=== PATIENT | male | born 1980 | race Two or more races ===

== ENCOUNTER 2025-05-24 16:49 | Emergency (ER) | payer MEDICARE ==
[~2025-05-24] VITALS: Ht 170.2 cm; Wt 85.1 kg
--- NOTE | 2025-05-24 18:10 | ED.PDOC ---
Musculoskeletal HPI Comments This is a 45 year old male presenting to the ED with chief complaint of right thumb injury. Patient reports that he has been experiencing right thumb pain and bruising after accidentally crushing it against a car door 2 hours ago. Patient relays that he applied ice immediately, but the swelling and pain has worsened. Patient denies any numbness, weakness, or bleeding. Chief Complaint: Upper Extremity Time Seen by MD: 18:06 Reviewed Notes: Nurses Notes, Medications, Allergies Allergies: Coded Allergies: NO KNOWN ALLERGIES (Unverified , 05/24/25) Information Source: Patient Mode of Arrival: Ambulatory Location: Right Extremity Location: Thumb Timing: Hours Prehospital treatment: None Severity: Moderate Able to Move Extremity: Yes Bear Weight: Fully Pain: Moderate Mechanism: Crush Circumstances: Door Closure Onset of Symptoms: After Trauma Symptoms: Swelling, Pain, Erythema DVT Risk Factors: NONE Last Tetanus: UTD Past Medical History PAST MEDICAL HISTORY: Denies Surgical History (Other): 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 Family History Family History: Reviewed,noncontributory to illness Social History Smoker: Non-Smoker Alcohol: Denies ETOH Use Drugs: Denies Drug Use Lives In: Home Constitutional: denies: chills, diaphoresis, fatigue, fever, malaise, sweats, weakness, others EENTM: denies: blurred vision, double vision, ear bleeding, ear discharge, ear drainage, ear pain, ear ringing, eye pain, eye redness, hearing loss, mouth pain, mouth swelling, nasal discharge, nose bleeding, nose congestion, nose pain, photophobia, tearing, throat pain, throat swelling, voice changes, others Respiratory: denies: cough, hemoptysis, orthopnea, SOB at rest, shortness of breath, SOB with excertion, stridor, wheezing, others Cardiovascular: denies: chest pain, dizzy spells, diaphoresis, Dyspnea on exertion, edema, irregular heart beat, left arm pain, lightheadedness, palpitations, PND, syncope, others Gastrointestinal: denies: abdomen distended, abdominal pain, blood streaked bowels, constipated, diarrhea, dysphagia, difficulty swallowing, hematemesis, melena, nausea, poor appetite, poor fluid intake, rectal bleeding, rectal pain, vomiting, others Genitourinary: denies: burning, dysuria, flank pain, frequency, hematuria, incontinence, penile discharge, penile sore, pain, testicle pain, testicle swelling, urgency, others Neurological: denies: dizziness, fainting, headache, left sided numbness, left sided weakness, numbness, paresthesia, pre-existing deficit, right sided numbn ess, right sided weakness, seizure, speech problems, tingling, tremors, weakness, others Musculoskeletal: denies: back pain, gout, joint pain, joint swelling, muscle pain, muscle stiffness, neck pain, others Integumetry: reports: others (Rt thumb swelling and bruising); denies: bruises, change in color, change in hair/nails, dryness, laceration, lesions, lumps, rash, wounds Allergic/Immunocompromised: denies: Difficulty Healing, Frequent Infections, Hives, Itching, others Hematologic/Lymphatic: denies: anemia, blood clots, easy bleeding, easy bruising, swollen glands, others Endocrine: denies: excessive hunger, excessive sweating, excessive thirst, excessive urination, flushing, intolerance to cold, intolerance to heat, unexplained weight gain, unexplained weight loss, others Psychiatric: denies: anxiety, bipolar disorder, depression, hopeless, panic disorder, schizophrenia, sleepless, suicidal, others All Other Systems: Reviewed and Negative Physical Exam General Appearance: No Apparent Distress, Normal HEENT: Normal ENT Inspection, Pharynx Normal, TMs Normal Neck: Full Range of Motion, Non-Tender, Normal, Normal Inspection Respiratory: Chest Non-Tender, Lungs Clear, No Accessory Muscle Use, No Respiratory Distress, Normal Breath Sounds Cardiovascular: No Edema, No JVD, No Murmur, No Gallop, Normal Peripheral Pulses, Regular Rate/Rhythm Breast Exam: Deferred Gastrointestinal: No Organomegaly, Non Tender, No Pulsatile Mass, Normal Bowel Sounds, Soft Genitalia: Deferred Pelvic: Deferred Rectal: Deferred Extremities: No calf tenderness, Normal capillary refill, Normal range of motion, No pedal edema, Other (Subungal hematoma, right thumb swelling, no obvious deformity) Musculoskeletal : Apperance: Normal Neurologic: Alert, doorkeeper II-XII nml as Tested, No Motor Deficits, Normal Affect, Normal Mood, No Sensory Deficits Cerebellar Function: Normal Reflexes: Normal Skin: Dry, Normal Color, Warm Lymphatic: No Adenopathy Was a procedure done? Was a procedure done?: Yes Sedation Sedation?: No Incision and Drainage Incision and Drainage: Other (Hematoma ) Location Right thumbnail Incision and Wound: Blood Informed consent obtained: Yes Risks/benefits/alt described: Yes Notes Bored hole with 18g needle to right thumb with blood draining. Patient tolerated procedure well. Wound care instructions provided. Differential Diagnosis EXT Differential Diagnosis: Compartment Syndrome, Fracture, Sprain, Neurovascular injury X-Ray, Labs, Meds, VS Vital Signs Date Time Temp Pulse Resp B/P (MAP) Pulse Ox O2 Delivery O2 Flow Rate FiO2 05/24/25 17:27 98.7 83 16 148/100 (116) 97 98.7 X-Ray, Labs, Meds, VS Comment Imaging: X-rays and CT scans were reviewed and interpreted by this provider, imaging shows no fractures and no pathological disease. Pending radiology review. Laboratory: Labs reviewed and interpreted by this provider. No significant abnormalities noted. Patient has prior medical visits reviewed. Med reconciliation performed Vital signs reviewed Time of 1ST Reevaluation: 19:06 Reevaluation 1ST: Improved Patient Education/Counseling: Diagnosis, Treatment, Need For Follow Up (Follow up with the primary care doctor next available appointment) Family Education/Counseling: No Family Present Departure 1 Departure Time of Disposition: 18:51 Impression: Primary Impression: Fracture of thumb Qualified Codes: S62.521A - Displaced fracture of distal phalanx of right thumb, initial encounter for closed fracture Disposition: 01 HOME / SELF CARE / HOMELESS Condition: Fair Discharged With: Self Critical Care Note Critical Care Time?: No Stability Stability form required: No Heart Score Heart Score: Heart Score Response (Comments) Value History N/A 0 EKG N/A 0 Age N/A 0 Risk Factors N/A 0 Troponin N/A 0 Total 0 I personally scribed for JESENIA GILLETTE ([email or web address]) on 05/24/25 at 18:10. Electronically submitted by Cali Dueñas ([email or web address]). JESENIA GILLETTE May 24, 2025 18:10
--- NOTE | 2025-05-24 18:20 | DVH ---
CLINICAL INDICATION: crushed injury R thumb TECHNIQUE: 5 radiographic views of the right hand were obtained. Comparison: None right hand FINDINGS/IMPRESSION: Amputation of fingers 4 through 5 distal to the proximal phalanx. Distal tuft fracture right thumb with displacement of the fragment. HS:Y
[2025-05-24 20:39] VITALS: BP 157/72; PULSE 77; RESP 16; TEMP 98.7; O2SAT 99
== END 2025-05-24 20:43 | disposition home or self-care (01) ==
LOC: ER 16:49
DX: S62.521A Displaced fracture of distal phalanx of right thumb, initial encounter for closed fracture (principal); W23.0XXA Caught, crushed, jammed, or pinched between moving objects, initial encounter; Y93.89 Activity, other specified; Y92.89 Other specified places as the place of occurrence of the external cause; Y99.8 Other external cause status
CPT/HCPCS: 11740; 29125; 73130